=== PATIENT | male | born 1940 | race Caucasian/White ===

== ENCOUNTER → 2021-01-26 | Day surgery (SDC) | payer MEDICARE, OTHER ==
[~2021-01-26] MED LIST: ASPIR-LOW81 MG PO; FISH OIL 1,0001 EACH PO; FLOMAX 0.4 MG0.4 MG PO; FLONASE; GLUCOSAMINE PO; LISINOPRIL2.5 MG PO; PRESERVISION PO; PROSCAR 5 MG TAB5 MG PO; STOOL SOFTENER1 EACH PO; TYLENOL325 MG PO
== END | disposition home or self-care (01) ==
LOC: OR 06:10
DX: D50.0 Iron deficiency anemia secondary to blood loss (chronic) (principal); K31.9 Disease of stomach and duodenum, unspecified; K25.9 Gastric ulcer, unspecified as acute or chronic, without hemorrhage or perforation; K21.00 Gastro-esophageal reflux disease with esophagitis, without bleeding; K29.40 Chronic atrophic gastritis without bleeding; K57.30 Diverticulosis of large intestine without perforation or abscess without bleeding; I10 Essential (primary) hypertension; E66.3 Overweight; Z68.29 Body mass index [BMI] 29.0-29.9, adult; I25.10 Atherosclerotic heart disease of native coronary artery without angina pectoris; Z95.1 Presence of aortocoronary bypass graft; K64.4 Residual hemorrhoidal skin tags; K64.0 First degree hemorrhoids
CPT/HCPCS: 88342; J2704; J7040

== ENCOUNTER → 2021-11-03 | Outpatient (CLI) | payer MEDICARE, OTHER | LOC: HEART 5 10:38 | DX: Z01.810 Encounter for preprocedural cardiovascular examination (principal); I08.3 Combined rheumatic disorders of mitral, aortic and tricuspid valves | CPT/HCPCS: 93306 ==